=== PATIENT | male | born 1940 | race Caucasian/White ===

== ENCOUNTER 2018-03-02 13:57 | Emergency (ER) | payer OTHER, SELFPAY ==
--- NOTE | 2018-03-02 14:13 | DI.RAD.S_ITS ---
PROCEDURE: XR CHEST 1V INDICATIONS: chest pain TECHNIQUE: One view of the chest was acquired. COMPARISON: None. FINDINGS: Surgical changes and devices: None. Lungs and pleura: No pleural effusions or pneumothorax. Lungs are clear. Mediastinum: Mediastinal contours appear normal. Heart size is normal. Bones and chest wall: No suspicious bony lesions. Overlying soft tissues appear unremarkable. IMPRESSION: Negative chest. No acute cardiopulmonary process is evident. Dictated by: Patrick Moya M.D. on 03/02/2018 at 13:37 Approved by: Patrick Moya M.D. on 03/02/2018 at 13:37
[2018-03-02 14:14] VITALS: BP 147/87; PULSE 78; RESP 18; TEMP 36.7; O2SAT 97; BMI 30.8
[2018-03-02 14:18] VITALS: BP 147/87; PULSE 70; RESP 16; O2SAT 100
[2018-03-02 14:20] LABS: Add Manual Diff / Slide Review NO; Basophils Percent Auto 0.5 % (0-2); Eosinophils Percent Auto 1.4 % (2-4); Hematocrit 44.5 % (41-53); Hemoglobin 15.7 g/dL (13.5-17.5); Lymphocytes Percent Auto 11.7 % (25-40); Mean Corpuscular HGB Conc 35.4 % (30-36); Mean Corpuscular Hemoglobin 31.4 PG (26-34); Mean Corpuscular Volume 88.7 fL (80-100); Monocytes Percent Auto 8.2 % (3-14); Neutrophils Absolute Auto 6500 /uL (3000-5900); Neutrophils Percent Auto 78.2 % (50-75); Platelet Count 222 X10^3/uL (150-400); Red Blood Cell Count 5.02 X10^6/uL (4.5-5.9); Red Cell Distribution Width 13.2 % (11.6-14.8); White Blood Cell Count 8.2 X10^3/uL (4.5-11.0)
[2018-03-02 14:28] LABS: Alanine Aminotransferase 39 IU/L (21-72); Albumin 4.7 g/dL (3.5-5.0); Albumin Globulin Ratio 1.7 (1.0-2.8); Alkaline Phosphatase 68 U/L (38-126); Aspartate Aminotransferase 25 IU/L (17-59); BUN Creatinine Ratio 21.8 (6-22); Bilirubin Total 0.7 mg/dL (0.2-1.3); Blood Urea Nitrogen 24 mg/dL (9-20); Calcium 9.6 mg/dL (8.4-10.2); Carbon Dioxide 28 mmol/L (22-32); Chloride 93 mmol/L (98-107); Creatine Kinase 118 U/L (55-170); Estimated Glomerular Filt Rate > 60.0 mL/min (>60); Globulin 2.7 g/dL (1.7-4.1); Glucose 100 mg/dL (80-110); HEMOLYSIS < 15 (0-50); Lipase 425 U/L (23-300); Potassium 4.4 mmol/L (3.4-5.1); Sodium 133 mmol/L (137-145); Total Protein 7.4 g/dL (6.3-8.2)
[2018-03-02 14:42] LABS: Troponin I < 0.012 ng/mL (0.01-0.034)
[2018-03-02 14:43] LABS: CKMB % Relative Index 1.2 % (1.5-5.0); Creatine Kinase MB 1.46 ng/mL (<2.37)
[2018-03-02] MEDS: AMLODIPINE 2.5 MG TABLET 10 MG PO (17:05)
[2018-03-02 17:28] VITALS: BP 146/82; PULSE 74; RESP 14; RESP 20; O2SAT 99
[2018-03-02 17:47] LABS: Troponin I < 0.012 ng/mL (0.01-0.034)
[2018-03-02] MEDS: CLOPIDOGREL 300 MG TABLET PO (18:18)
[2018-03-02 18:29] VITALS: BP 145/82; PULSE 70; RESP 13; O2SAT 99
--- NOTE | 2018-03-02 18:30 | ED_ITS ---
HPI - Chest Pain General Chief Complaint: Chest Pain Stated Complaint: CHEST PAIN Time Seen by Provider: 03/02/18 14:00 History of Present Illness HPI narrative: HPI 78-year-old male with CAD (S/P LAD stent ?1, RCA stent ?2; all placed 3 years ago) presents for repeat evaluation of one week of waxing waning substernal chest discomfort radiating to his neck, pain is occurring at rest is without clear provoking factors, relieved by nitroglycerin. Patient has had pains last week, has been evaluated to outside EDs, both of which have offered hospitalization versus prompt outpatient follow-up. 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 Patient had a recurrence of symptoms while he was in town to play bridge with friends and presented to the emergency department. Prior to arrival patient took ASA 325?2 and several nitroglycerin with resolution of symptoms. Group Director is Dr. Trent Navarro. M/S/F/SocHx notable for: please see HPI; remainder reviewed with patient and in chart. ROS: Negative constitutional, eye, cardiovascular, pulmonary, GI, , MSK, skin , neurologic, psychiatric, endocrine unless noted in the HPI. Exam Gen: Pleasant, non-toxic appearing, resting comfortably. HEENT: NC, AT, PEERL, EOMI. Resp: Clear to auscultation bilaterally, normal work of breathing, no accessory muscle usage. Card: Regular rate and rhythm with no murmurs, rubs, or gallops, extremities warm and well perfused. GI: Non-tender to palpation throughout all quadrants, no focal tenderness at McBurney's point, negative Damon's sign, non-distended, no rebound or guarding. : No suprapubic tenderness to palpation. MSK: No visible deformities, strength and tone without visually appreciable deficit. Skin: Normal color with no visible lesions. Neuro: AO x 3, no facial asymmetry, vision and hearing WNL. Psych: Mood and affect appropriate. Labs / Imaging: EKG: SR 76 bpm, first-degree AV block, no ST segment elevations or depressions, no LBBB, one PVC. WBC 8.2, HB 15.7, sodium 133, potassium 4.4, troponin <0.012, troponin (repeat) <0.012, total bilirubin 0.7, AST 25, ALT 39, alkaline phosphatase 68, lipase 425. CXR: No acute cardiopulmonary disease process. MDM Previous chart, nursing note, labs, imaging, and vitals reviewed. A: 78-year-old male with CAD (S/P LAD stent ?1, RCA stent ?2; all placed 3 years ago) presents for repeat evaluation of one week of waxing waning substernal chest discomfort radiating to his neck, pain is occurring at rest is without clear provoking factors, relieved by nitroglycerin. DDx: angina, unstable angina, ACS, GERD, pneumonia, pericarditis, myocarditis, dissection Evaluation: * patient with negative serial troponins, nonischemic EKG. Doubt ACS. Patient is no angina. Now fully resolved after an prehospital nitroglycerin, duration of effective nitroglycerin has worn off, patient pain free. Note was made of the mildly elevated lipase, however the patient no epigastric tenderness palpation. This is currently of unclear significance. * Alternate diagnoses considered and felt to be excluded based upon the above evaluation include: pericarditis, myocarditis, pleural effusion, pericardial effusion, pneumothorax, pneumonia, anemia. * 16:37 - discuss patient's case with Dr. Minor, the mobile heavy equipment operator on-call for doctors. Patient's medical record, presentation, and current plan of evaluation reviewed. Recommended discharge after negative cardiac evaluation versus observation overnight. Also recommended additional 300 mg Plavix and 10 mg amlodipine. These were ordered. Disposition: discharge with cardiology follow-up tomorrow. Impression: chest pain (please reference below for remainder of encounter information) Related Data Home Medications Medication Instructions Recorded Confirmed Fish Oil 1 cap PO BID 03/02/18 03/02/18 aspirin 81 mg PO DAILY 03/02/18 03/02/18 atorvastatin 20 mg PO DAILY 03/02/18 03/02/18 cholecalciferol (vitamin D3) 1,000 unit PO DAILY 03/02/18 03/02/18 [Vitamin D3] glucosamine HCl 1 tab PO BID 03/02/18 03/02/18 isosorbide mononitrate 15 mg PO DAILY 03/02/18 03/02/18 levothyroxine 125 mcg PO DAILY 03/02/18 03/02/18 loratadine [Claritin] 10 mg PO DAILY 03/02/18 03/02/18 multivitamin 1 tab PO DAILY 03/02/18 03/02/18 nitroglycerin [Nitrostat] 0.4 mg SUBLINGUAL Q5M PRN 03/02/18 03/02/18 valsartan 160 mg PO DAILY 03/02/18 03/02/18 Allergies Allergy/AdvReac Type Severity Reaction Status Date / Time No Known Drug Allergies Allergy Verified 03/02/18 14:21 PFSH Social History Smoking Status: Former smoker Exam Initial Vital Signs Initial Vital Signs: Vital Signs Temperature 98.1 F 03/02/18 14:14 Pulse Rate 78 03/02/18 14:14 Respiratory Rate 18 03/02/18 14:14 Blood Pressure 147/87 H 03/02/18 14:14 Pulse Oximetry 97 03/02/18 14:14 Course Orders Ordered: ED Orders 03/02/18 14:11 Complete Blood Count AUTO DIFF Stat Comprehensive Metabolic Panel Stat Lipase Stat Troponin with CK Cardiac Panel Stat 03/02/18 14:13 XR chest 1V Stat EKG-12 Lead Stat 03/02/18 17:15 Troponin I Stat Discontinued Medications Amlodipine Besylate (Norvasc) 10 mg PO NOW ONE Stop: 03/02/18 16:48 Last Admin: 03/02/18 17:05 Dose: 10 mg Aspirin (Aspirin Chew) 324 mg PO NOW ONE Stop: 03/02/18 14:14 Last Admin: 03/02/18 14:46 Dose: Clopidogrel Bisulfate (Plavix) 300 mg PO NOW ONE Stop: 03/02/18 17:51 Last Admin: 03/02/18 18:18 Dose: 300 mg Vital Signs - 8 hr 03/02/18 14:14 03/02/18 14:18 03/02/18 17:28 Temperature 98.1 F Pulse Rate 78 70 74 Respiratory Rate 18 16 20 Blood Pressure 147/87 H Blood Pressure [Left Arm] 147/87 H 146/82 H Pulse Oximetry 97 100 99 03/02/18 18:29 Temperature Pulse Rate 70 Respiratory Rate 13 Blood Pressure Blood Pressure [Left Arm] 145/82 H Pulse Oximetry 99 MDM - Chest Pain Lab Data Result diagrams: 03/02/18 14:11 03/02/18 14:11 Lab Results 03/02/18 03/02/18 03/02/18 Range/Units 14:11 14:11 17:15 WBC 8.2 (4.5-11.0) X10^3/uL RBC 5.02 (4.5-5.9) X10^6/uL Hgb 15.7 (13.5-17.5) g/dL Hct 44.5 (41-53) % MCV 88.7 (80-100) fL MCH 31.4 (26-34) PG MCHC 35.4 (30-36) % RDW 13.2 (11.6-14.8) % Plt Count 222 (150-400) X10^3/uL Neut % (Auto) 78.2 H (50-75) % Lymph % (Auto) 11.7 L (25-40) % [place] % (Auto) 8.2 (3-14) % Eos % (Auto) 1.4 L (2-4) % Baso % (Auto) 0.5 (0-2) % Neut # (Auto) 6500 H (3139-2413) /uL Sodium 133 L (137-145) mmol/L Potassium 4.4 (3.4-5.1) mmol/L Chloride 93 L (98-107) mmol/L Carbon Dioxide 28 (22-32) mmol/L BUN 24 H (9-20) mg/dL Creatinine 1.10 (0.66-1.25) mg/dL Estimated GFR > 60.0 (>60) mL/min BUN/Creatinine Ratio 21.8 (6-22) Glucose 100 (80-110) mg/dL Calcium 9.6 (8.4-10.2) mg/dL Total Bilirubin 0.7 (0.2-1.3) mg/dL AST 25 (17-59) IU/L ALT 39 (21-72) IU/L Alkaline Phosphatase 68 (38-126) U/L Total Creatine Kinase 118 (55-170) U/L CK-MB (CK-2) 1.46 (<2.37) ng/mL CK-MB (CK-2) Rel Index 1.2 L (1.5-5.0) % Troponin I < 0.012 < 0.012 (0.01-0.034) ng/mL Total Protein 7.4 (6.3-8.2) g/dL Albumin 4.7 (3.5-5.0) g/dL Globulin 2.7 (1.7-4.1) g/dL Albumin/Globulin Ratio 1.7 (1.0-2.8) Lipase 425 H (23-300) U/L Discharge Plan Departure Prescriptions: No Action multivitamin Tablet 1 tab PO DAILY RF: 0 atorvastatin 20 mg Tablet 20 mg PO DAILY RF: 0 isosorbide mononitrate 30 mg Tablet Extended Release 24 Hr 15 mg PO DAILY RF: 0 aspirin 81 mg Tablet,Delayed Release (Dr/Ec) 81 mg PO DAILY RF: 0 levothyroxine 125 mcg Tablet 125 mcg PO DAILY RF: 0 nitroglycerin [Nitrostat] 0.4 mg Tablet, Sublingual 0.4 mg SUBLINGUAL Q5M PRN (Reason: Chest Pain) RF: 0 loratadine [Claritin] 10 mg Tablet 10 mg PO DAILY RF: 0 valsartan 160 mg Tablet 160 mg PO DAILY RF: 0 cholecalciferol (vitamin D3) [Vitamin D3] 1,000 unit Capsule 1,000 unit PO DAILY RF: 0 glucosamine HCl 1,500 mg Tablet 1 tab PO BID RF: 0 Fish Oil 1 cap PO BID RF: 0
== END 2018-03-02 18:42 | disposition home or self-care (01) ==
PROVIDERS: Emergency Provider Emergency Medicine
DX: R07.89 Other chest pain (principal)
CPT/HCPCS: 36415; 36591; 71045; 80053; 82550; 82553; 83690; 84484; 85025; 93005; 93041; 99283; 99285